=== PATIENT | male | born 2000 | race Caucasian/White ===

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

== ENCOUNTER 2020-01-09 13:09 | Emergency (ER) | payer BC ==
[~2020-01-09] VITALS: Ht 172.7 cm; Wt 74.1 kg
[2020-01-09 13:15] VITALS: TEMP 97.9
[2020-01-09] MEDS ORDERED: MAG-OX 400400 MG/TAB PO (13:19)
[2020-01-09] MEDS ORDERED: ZANAFLEX2 MG PO (13:20)
[2020-01-09] MEDS ORDERED: LEXAPRO20 MG PO (13:20)
[2020-01-09] MEDS ORDERED: ZOFRAN ODT4 MG PO (13:22)
[2020-01-09 13:31] LABS: BASO # 0.1 (0.0-0.2); EOS # 0.2 (0.0-0.7); EOS % 3.7 % (0-4.0); GRAN # 3.4 (1.4-6.5); GRAN % 56.7 % (42.2-75.2); HEMATOCRIT 43.2 % (36.0-47.0); HEMOGLOBIN 14.9 g/dl (12.5-16.1); LYMPH # 1.7 (1.2-3.4); LYMPH % 27.8 % (20.0-51.0); MEAN CELL VOLUME 88 fl (80.0-95.0); MEAN CORPUSCULAR HEMOGLOBIN 31 pg (26.0-32.0); MEAN CORPUSCULAR HGB CONC 35 g/dl (33.0-37.0); MEAN PLATELET VOLUME 10.8 fl (7.4-10.4); MONO # 0.6 (0.1-0.6); MONO % 10.6 % (1.7-9.3); PLATELET COUNT 214 K/mm3 (130-400); RED BLOOD COUNT 4.89 M/mm3 (4.20-5.60)
[2020-01-09 13:40] LABS: CALCIUM 8.8 mg/dL (8.4-10.2); CREATININE, serum 1.21 (0.66-1.25); POTASSIUM 4.2 mmol/L (3.4-5.0)
[2020-01-09 13:40] LABS: COLLECTION METHOD CLEAN CATCH
[2020-01-09 13:56] LABS: PH 7 (5-8); SQUAMOUS EPITHELIAL None Seen /hpf; URINE APPEARANCE Cloudy; URINE BACTERIA None Seen /hpf; URINE BILIRUBIN Negative (NEGATIVE); URINE BLOOD Negative (NEGATIVE); URINE COLOR Amber; URINE GLUCOSE Negative (NEGATIVE); URINE KETONE Negative (NEGATIVE); URINE LEUKOCYTE ESTERASE Negative (NEGATIVE); URINE NITRATE Negative (NEGATIVE); URINE PROTEIN(semi-quant) Negative (NEGATIVE); URINE RBC 0-2 /hpf; URINE UROBILINOGEN Negative (NEGATIVE)
[2020-01-09 14:40] VITALS: BP 107/51; PULSE 56
== END 2020-01-09 14:55 | disposition home or self-care (01) ==
LOC: COL.ER 13:09
PROVIDERS: Emergency Medicine
DX: T67.5XXA Heat exhaustion, unspecified, initial encounter (principal)
CPT/HCPCS: J2405; J2550; J7030; J7040

== ENCOUNTER 2020-09-07 16:45 | Outpatient (RCR) | payer BC ==
[~2020-09-07 16:45] MED LIST changes: +LEXAPRO20 MG PO; +MAG-OX 400400 MG/TAB PO; +ZANAFLEX2 MG PO
== END 2020-11-22 | disposition still patient (30) ==
LOC: WSPT
DX: F07.81 Postconcussional syndrome (principal)

== ENCOUNTER 2022-09-05 00:12 | Emergency (ER) | payer BC ==
[~2022-09-05] VITALS: Ht 172.7 cm; Wt 81.8 kg
[2022-09-05 00:33] VITALS: TEMP 98.4
[2022-09-05 01:06] LABS: BASO # 0.1 K/mm3 (0.0-0.2); BASO % 0.8 % (0.0-2.0); EOS # 0.2 K/mm3 (0.0-0.7); EOS % 1.8 % (0.0-4.0); GRAN # 5.3 K/mm3 (1.4-6.5); GRAN % 62.9 % (42.2-75.2); HEMATOCRIT 43.9 % (42.0-52.0); HEMOGLOBIN 15.6 g/dl (13.5-18.0); LYMPH # 2.2 K/mm3 (1.2-3.4); MEAN CELL VOLUME 87 fl (80.0-100.0); MEAN CORPUSCULAR HEMOGLOBIN 31 pg (27-31); MEAN CORPUSCULAR HGB CONC 36 g/dl (33.0-37.0); MEAN PLATELET VOLUME 10.7 fl (7.4-10.4); MONO # 0.7 K/mm3 (0.1-0.6); MONO % 8.3 % (1.7-9.3); PLATELET COUNT 242 K/mm3 (130-400); RED BLOOD COUNT 5.03 M/mm3 (4.20-5.60); REDCELL DISTRIBUTION WIDTH-CV 11.8 % (11.5-14.5)
[2022-09-05 01:29] LABS: ALANINE AMINOTRANSFERASE 35 U/L (0-55); ALBUMIN 4.2 gm/dL (3.5-5.0); ALKALINE PHOSPHATASE 86 U/L (40-150); ANION GAP 12 mmol/L (7-16); AST,SGOT 36 U/L (5-34); BILIRUBIN,TOTAL 0.3 mg/dL (0.2-1.2); BLOOD UREA NITROGEN 18 mg/dL (9-21); CALCIUM 9.4 mg/dL (8.4-10.2); CARBON DIOXIDE 23 mmol/L (22-29); CHLORIDE 106 mmol/L (98-107); CREATININE, serum 1.32 mg/dL (0.72-1.25); GLUCOSE 97 mg/dL (70-99); POTASSIUM 3.8 mmol/L (3.5-4.5); SODIUM 141 mmol/L (136-145); TOTAL PROTEIN 6.9 gm/dL (6.2-8.1)
[2022-09-05 01:36] LABS: TROPONIN-I < 0.010 ng/mL (0.00-0.033)
[2022-09-05 01:45] VITALS: O2SAT 98
[2022-09-05 01:59] VITALS: BP 144/70; PULSE 77
== END 2022-09-05 01:59 | disposition home or self-care (01) ==
LOC: COL.ER 00:12
PROVIDERS: Nurse Practitioner Primary Care
DX: R07.9 Chest pain, unspecified (principal); F17.290 Nicotine dependence, other tobacco product, uncomplicated; Z28.310 Unvaccinated for COVID-19